=== PATIENT | male | born 1970 | race Caucasian/White ===

== ENCOUNTER 2021-07-08 06:45 | Inpatient (IN) ==
[2021-07-08] MEDS ORDERED: *HR* Labetalol 20 MG/4 ML SYRINGE IVP ONE ×2 (07:16→08:18)
[2021-07-08] MEDS ORDERED: Isovue-370 500 ML BOTTLE IVP ONE (07:16)
[2021-07-08 07:45] LABS: Hematocrit 48.3 % (37.5-50.1); Hemoglobin 16.3 g/dL (12.9-16.9); Mean Corpuscular HGB Conc 33.7 g/dL (31.6-35.5); Mean Corpuscular Hemoglobin 29.9 pg (28.0-33.3); Mean Corpuscular Volume 88.6 fL (83.0-100.0); Mean Platelet Volume 9.1 fL (9.4-12.4); Platelet Count 309 K/mcL (140-400); Red Blood Count 5.45 M/mcL (4.19-5.50); Red Cell Distribution Width 13.6 % (11.5-14.5); White Blood Count 12.7 K/mcL (4.3-11.1)
[2021-07-08 07:52] LABS: INR 1.1; Prothrombin Time 12.5 Seconds (9.4-12.1)
[2021-07-08 07:55] LABS: Activated Partial Thrombo Time 33.3 Seconds (26.0-36.0)
[2021-07-08] MEDS ORDERED: Aspirin 325 MG TABLET PO ONE (08:00)
[2021-07-08 08:07] LABS: BUN/Creatinine Ratio 15 (6-26); Blood Urea Nitrogen 18 mg/dL (6-20); Calcium 9.3 mg/dL (8.6-10.3); Carbon Dioxide 27 mEq/L (23-29); Chloride 101 mEq/L (98-107); Ethanol < 10 mg/dL (Less than 10); Glucose 220 mg/dL (70-105); Osmolality,Calculated 295 (280-300); Potassium 3.8 mEq/L (3.5-5.1); Sodium 138 mEq/L (136-145); eGFR For African Americans > 60 (> 60); eGFR For Non-African Americans > 60 (> 60)
[2021-07-08 08:09] LABS: Troponin I 0.04 ng/mL (< 0.04)
[2021-07-08] MEDS ORDERED: niCARdipine 20 MG/200 ML MLS IVC SCH ×2 (09:00→09:55)
[2021-07-08] MEDS ORDERED: Ondansetron ODT 4 MG TAB.RAPDIS SL PRN (09:22)
[2021-07-08] MEDS ORDERED: Acetaminophen 325 MG TABLET PO PRN (09:22)
[2021-07-08] MEDS ORDERED: Naloxone 0.4 MG/ML INJ IVP PRN (09:22)
[2021-07-08] MEDS ORDERED: *HR* Dextrose 50 % in Water (Syg) 50 ML SYRINGE IVP PRN (09:37)
[2021-07-08] MEDS ORDERED: Dextrose 4 GM Chewable Tablets PO PRN ×2 (09:37)
[2021-07-08] MEDS ORDERED: D5% in Water 1,000 ML IVC PRN (09:37)
[2021-07-08] MEDS ORDERED: Perflutren Lipid Microsphere 1.3 ML in 0.9 % Sodium Chloride 8.7 ML IVP PRN (09:39)
[2021-07-08] MEDS ORDERED: Albuterol 2.5 MG/3 ML NEBULIZER IH PRN (09:48)
[2021-07-08] MEDS ORDERED: Furosemide 20 MG/2 ML VIAL IVP ONE (09:50)
[2021-07-08] MEDS: niCARdipine 20 MG/200 ML MLS IVC SCH (11:25)
[2021-07-08 11:51] LABS: Influenza A PCR Negative (Negative); Influenza B PCR Negative (Negative); Resp. Syncytial Virus PCR Negative (Negative)
[2021-07-08 11:55] LABS: SARS-CoV-2 by PCR (In House) Negative (Negative)
[2021-07-08 13:07] LABS: Bilirubin,Urine Negative (Negative); Blood,Urine Negative (Negative); Clarity,Urine Clear (Clear); Color,Urine Colorless (Yellow); Glucose,Urine (UA) 30 mg/dL (Normal); Ketones,Urine Negative (Negative); Leukocyte Esterase,Urine Negative (Negative); Nitrite,Urine Negative (Negative); PH,Urine 6.5 pH Units (5.0-8.0); Protein,Urine Negative (Neg-Trace); RBC,Urine 0-3 per hpf (0-3); Specific Gravity,Urine 1.011 (1.010-1.025); Urobilinogen,Urine Normal (Normal)
[2021-07-08 13:37] LABS: Chol/HDL Ratio 3.3 (0-4.9); Magnesium 1.7 mg/dL (1.6-2.6)
[2021-07-08 14:08] LABS: Amphetamine Screen,Urine Negative ng/mL (Cutoff=1000); Barbiturate Screen,Urine Negative ng/mL (Cutoff=200); Benzodiazepines Screen,Urine Negative ng/mL (Cutoff=200); Cannabinoid Screen,Urine Negative ng/mL (Cutoff = 50); Cocaine Screen,Urine Negative ng/mL (Cutoff= 300); Opiate Screen,Urine Negative ng/mL (Cutoff=300); Phencyclidine Screen,Urine Negative ng/mL (Cutoff=25)
[2021-07-08] MEDS: Insulin LISPRO 300 UNITS/3 ML VIAL SUBQ SCH ×3 (15:59→21:21)
[2021-07-08 16:55] LABS: Thyroid Stimulating Hormone 1.764 mcIU/mL (0.340-5.600)
[2021-07-09] MEDS: niCARdipine 20 MG/200 ML MLS IVC SCH ×5 (04:13→23:12)
[2021-07-09 07:48] LABS: Basophils # 0.1 K/mcL (0.0-0.2); Basophils % 0.4 %; Eosinophils # 0.3 K/mcL (0.0-0.6); Eosinophils % 1.6 %; Hematocrit 45.7 % (37.5-50.1); Hemoglobin 15.3 g/dL (12.9-16.9); Immature Granulocytes % 0.5 % (0-4); Lymphocytes # 1.6 K/mcL (0.6-4.6); Lymphocytes % 10.6 %; Mean Corpuscular HGB Conc 33.5 g/dL (31.6-35.5); Mean Corpuscular Hemoglobin 29.6 pg (28.0-33.3); Mean Corpuscular Volume 88.4 fL (83.0-100.0); Mean Platelet Volume 9.2 fL (9.4-12.4); Monocytes # 1.1 K/mcL (0.0-1.3); Monocytes % 7.4 %; Neutrophils # 12.2 K/mcL (1.6-8.9); Platelet Count 309 K/mcL (140-400); Red Blood Count 5.17 M/mcL (4.19-5.50); Red Cell Distribution Width 13.6 % (11.5-14.5); Segmented Neutrophils % 79.5 %; White Blood Count 15.3 K/mcL (4.3-11.1)
[2021-07-09 07:54] LABS: INR 1.2; Prothrombin Time 13.3 Seconds (9.4-12.1)
[2021-07-09] MEDS: Aspirin Enteric Coated 81 MG Tablet PO SCH (08:03)
[2021-07-09] MEDS: Insulin LISPRO 300 UNITS/3 ML VIAL SUBQ SCH ×4 (08:04→20:07)
[2021-07-09 08:11] LABS: Albumin 4.1 g/dL (3.5-5.7); Albumin/Globulin Ratio 1.5 (1.1-2.2); Bilirubin,Direct 0.2 mg/dL (0.0-0.2); Bilirubin,Indirect 0.8 mg/dL (0.0-1.0); Globulin 2.7 g/dL (2.4-3.5); Total Protein 6.8 g/dL (6.4-8.9)
[2021-07-09 08:12] LABS: Alanine Aminotransferase 13 Units/L (7-52); Albumin 4.1 g/dL (3.5-5.7); Albumin/Globulin Ratio 1.5 (1.1-2.2); Alkaline Phosphatase 103 Units/L (34-104); Aspartate Amino Transferase 14 Units/L (13-39); BUN/Creatinine Ratio 18 (6-26); Blood Urea Nitrogen 20 mg/dL (6-20); Calcium 8.9 mg/dL (8.6-10.3); Carbon Dioxide 27 mEq/L (23-29); Chloride 101 mEq/L (98-107); Globulin 2.7 g/dL (2.4-3.5); Glucose 203 mg/dL (70-105); Osmolality,Calculated 294 (280-300); Potassium 3.5 mEq/L (3.5-5.1); Sodium 138 mEq/L (136-145); Total Protein 6.8 g/dL (6.4-8.9); eGFR For African Americans > 60 (> 60); eGFR For Non-African Americans > 60 (> 60)
[2021-07-09 10:08] LABS: Estimated Average Glucose 206 mg/dl; Hemoglobin A1C 8.8 %
[2021-07-09] MEDS: Nystatin POWDER 30 GM BOTTLE TP SCH ×3 (12:03→20:10)
[2021-07-10] MEDS: niCARdipine 20 MG/200 ML MLS IVC SCH ×5 (04:29→17:05)
[2021-07-10 06:27] LABS: Basophils # 0.1 K/mcL (0.0-0.2); Basophils % 0.3 %; Eosinophils # 0.3 K/mcL (0.0-0.6); Eosinophils % 2.1 %; Hematocrit 45.5 % (37.5-50.1); Hemoglobin 15.2 g/dL (12.9-16.9); Immature Granulocytes % 0.5 % (0-4); Lymphocytes # 1.7 K/mcL (0.6-4.6); Lymphocytes % 11.5 %; Mean Corpuscular HGB Conc 33.4 g/dL (31.6-35.5); Mean Corpuscular Hemoglobin 29.3 pg (28.0-33.3); Mean Corpuscular Volume 87.8 fL (83.0-100.0); Mean Platelet Volume 9.1 fL (9.4-12.4); Monocytes # 1.2 K/mcL (0.0-1.3); Monocytes % 7.6 %; Neutrophils # 11.8 K/mcL (1.6-8.9); Platelet Count 296 K/mcL (140-400); Red Blood Count 5.18 M/mcL (4.19-5.50); Red Cell Distribution Width 13.5 % (11.5-14.5); White Blood Count 15.1 K/mcL (4.3-11.1)
[2021-07-10 06:49] LABS: BUN/Creatinine Ratio 20 (6-26); Blood Urea Nitrogen 22 mg/dL (6-20); Calcium 8.8 mg/dL (8.6-10.3); Carbon Dioxide 27 mEq/L (23-29); Chloride 102 mEq/L (98-107); Glucose 172 mg/dL (70-105); Osmolality,Calculated 291 (280-300); Potassium 3.5 mEq/L (3.5-5.1); Sodium 137 mEq/L (136-145); eGFR For African Americans > 60 (> 60); eGFR For Non-African Americans > 60 (> 60)
[2021-07-10] MEDS: Aspirin Enteric Coated 81 MG Tablet PO SCH (07:42)
[2021-07-10] MEDS: lisinopriL 20 MG TABLET PO SCH (08:10)
[2021-07-10] MEDS: amLODIPine 5 MG TABLET PO SCH (08:10)
[2021-07-10] MEDS: Nystatin POWDER 30 GM BOTTLE TP SCH ×3 (08:12→20:30)
[2021-07-10] MEDS: Insulin LISPRO 300 UNITS/3 ML VIAL SUBQ SCH ×4 (08:13→21:24)
[2021-07-10] MEDS: Melatonin 3 MG TABLET PO PRN (20:29)
[2021-07-11] MEDS: niCARdipine 20 MG/200 ML MLS IVC SCH ×5 (01:09→22:35)
[2021-07-11] MEDS: amLODIPine 5 MG TABLET PO SCH ×2 (07:40→08:17)
[2021-07-11] MEDS: lisinopriL 20 MG TABLET PO SCH ×2 (07:40→08:17)
[2021-07-11] MEDS: Aspirin Enteric Coated 81 MG Tablet PO SCH (07:40)
[2021-07-11] MEDS: Nystatin POWDER 30 GM BOTTLE TP SCH ×3 (07:41→20:59)
[2021-07-11 08:14] LABS: Basophils # 0.1 K/mcL (0.0-0.2); Basophils % 0.3 %; Eosinophils # 0.3 K/mcL (0.0-0.6); Eosinophils % 1.7 %; Hematocrit 45.4 % (37.5-50.1); Hemoglobin 15.1 g/dL (12.9-16.9); Immature Granulocytes % 0.5 % (0-4); Lymphocytes # 1.6 K/mcL (0.6-4.6); Lymphocytes % 9.7 %; Mean Corpuscular HGB Conc 33.3 g/dL (31.6-35.5); Mean Corpuscular Hemoglobin 29.3 pg (28.0-33.3); Mean Corpuscular Volume 88.2 fL (83.0-100.0); Mean Platelet Volume 8.9 fL (9.4-12.4); Monocytes # 1.1 K/mcL (0.0-1.3); Monocytes % 6.6 %; Neutrophils # 13.1 K/mcL (1.6-8.9); Platelet Count 309 K/mcL (140-400); Red Blood Count 5.15 M/mcL (4.19-5.50); Red Cell Distribution Width 13.5 % (11.5-14.5); Segmented Neutrophils % 81.2 %; White Blood Count 16.1 K/mcL (4.3-11.1)
[2021-07-11] MEDS: Insulin LISPRO 300 UNITS/3 ML VIAL SUBQ SCH ×5 (08:27→21:00)
[2021-07-11 08:34] LABS: BUN/Creatinine Ratio 23 (6-26); Blood Urea Nitrogen 25 mg/dL (6-20); Carbon Dioxide 26 mEq/L (23-29); Chloride 102 mEq/L (98-107); Glucose 182 mg/dL (70-105); Osmolality,Calculated 293 (280-300); Potassium 3.8 mEq/L (3.5-5.1); Sodium 137 mEq/L (136-145); eGFR For African Americans > 60 (> 60); eGFR For Non-African Americans > 60 (> 60)
[2021-07-11] MEDS: Melatonin 3 MG TABLET PO PRN (22:10)
[2021-07-12] MEDS: niCARdipine 20 MG/200 ML MLS IVC SCH ×5 (04:17→23:39)
[2021-07-12 05:30] LABS: Basophils # 0.1 K/mcL (0.0-0.2); Basophils % 0.4 %; Eosinophils # 0.4 K/mcL (0.0-0.6); Eosinophils % 2.6 %; Hematocrit 44.2 % (37.5-50.1); Hemoglobin 14.6 g/dL (12.9-16.9); Immature Granulocytes % 0.4 % (0-4); Lymphocytes # 2.1 K/mcL (0.6-4.6); Lymphocytes % 13.3 %; Mean Corpuscular Hemoglobin 29.3 pg (28.0-33.3); Mean Corpuscular Volume 88.6 fL (83.0-100.0); Monocytes # 1.3 K/mcL (0.0-1.3); Monocytes % 8.5 %; Neutrophils # 11.7 K/mcL (1.6-8.9); Platelet Count 295 K/mcL (140-400); Red Blood Count 4.99 M/mcL (4.19-5.50); Red Cell Distribution Width 13.5 % (11.5-14.5); Segmented Neutrophils % 74.8 %; White Blood Count 15.7 K/mcL (4.3-11.1)
[2021-07-12 07:01] LABS: BUN/Creatinine Ratio 24 (6-26); Blood Urea Nitrogen 30 mg/dL (6-20); Calcium 8.6 mg/dL (8.6-10.3); Carbon Dioxide 21 mEq/L (23-29); Chloride 105 mEq/L (98-107); Glucose 154 mg/dL (70-105); Osmolality,Calculated 295 (280-300); Sodium 138 mEq/L (136-145); eGFR For African Americans > 60 (> 60); eGFR For Non-African Americans 60 (> 60)
[2021-07-12] MEDS: amLODIPine 5 MG TABLET PO SCH (07:34)
[2021-07-12] MEDS: Aspirin Enteric Coated 81 MG Tablet PO SCH (07:34)
[2021-07-12] MEDS: lisinopriL 20 MG TABLET PO SCH (07:34)
[2021-07-12] MEDS: Insulin LISPRO 300 UNITS/3 ML VIAL SUBQ SCH ×4 (07:35→21:12)
[2021-07-12] MEDS: Nystatin POWDER 30 GM BOTTLE TP SCH ×3 (07:35→23:39)
[2021-07-12] MEDS: Melatonin 3 MG TABLET PO PRN (20:59)
[2021-07-13 06:51] LABS: Basophils % 0.3 %; Eosinophils # 0.3 K/mcL (0.0-0.6); Eosinophils % 2.2 %; Hematocrit 44.9 % (37.5-50.1); Immature Granulocytes % 0.4 % (0-4); Lymphocytes % 13.8 %; Mean Corpuscular HGB Conc 33.4 g/dL (31.6-35.5); Mean Corpuscular Hemoglobin 29.9 pg (28.0-33.3); Mean Corpuscular Volume 89.4 fL (83.0-100.0); Mean Platelet Volume 9.2 fL (9.4-12.4); Monocytes # 1.2 K/mcL (0.0-1.3); Monocytes % 8.4 %; Neutrophils # 10.7 K/mcL (1.6-8.9); Platelet Count 325 K/mcL (140-400); Red Blood Count 5.02 M/mcL (4.19-5.50); Red Cell Distribution Width 13.6 % (11.5-14.5); Segmented Neutrophils % 74.9 %; White Blood Count 14.3 K/mcL (4.3-11.1)
[2021-07-13 07:04] LABS: Calcium 8.8 mg/dL (8.6-10.3); Potassium 3.8 mEq/L (3.5-5.1)
[2021-07-13] MEDS ORDERED: Lidocaine Viscous Oral Soln 15 ML SOLUTION MM PRN (08:05)
[2021-07-13] MEDS ORDERED: 0.9 % Sodium Chloride 500 ML IVC ONE (08:06)
[2021-07-13] MEDS: *HR* FentaNYL (PF) 100 MCG/2 ML VIAL IVP PRN ×4 (08:25→08:40)
[2021-07-13] MEDS: *HR* Midazolam HCl 5 MG/5 ML VIAL IVP PRN ×4 (08:25→08:40)
[2021-07-13] MEDS: Insulin LISPRO 300 UNITS/3 ML VIAL SUBQ SCH ×2 (08:41→11:55)
[2021-07-13] MEDS: amLODIPine 5 MG TABLET PO SCH (09:35)
[2021-07-13] MEDS: Aspirin Enteric Coated 81 MG Tablet PO SCH (09:36)
[2021-07-13] MEDS: Nystatin POWDER 30 GM BOTTLE TP SCH ×2 (09:38→14:59)
[2021-07-13] MEDS ORDERED: carvediloL 6.25 MG TABLET PO SCH (12:42)
[2021-07-13] MEDS ORDERED: hydrALAZINE 25 MG TABLET PO SCH (13:00)
[2021-07-13 14:56] VITALS: TEMP 97.6; O2SAT 93
[2021-07-13 14:57] VITALS: BP 131/74; PULSE 73
[2021-07-13] MEDS: niCARdipine 20 MG/200 ML MLS IVC SCH (15:05)
[2021-07-15 10:02] LABS: Urine Collection Volume RANDOM mL
== END 2021-07-13 18:16 | disposition home or self-care (01) | DRG 64 ==
LOC: EMEROOARM 06:45 → ICNU 06:45 → SUATTDRO 09:31 → ICNU 11:20 → 2NNU 07-10 00:57
PROVIDERS: ADMIT Internal Medicine; ATTEND Student in an Organized Health Care Education/Training Program